=== PATIENT | female | born 1955 | race Caucasian/White ===

== ENCOUNTER 2021-05-16 11:15 | Outpatient (CLI) | payer OTHER ==
[~2021-05-16 11:15] MED LIST: OSEL75CA; ZOCOR40 MG
== END 2021-05-16 12:15 | disposition home or self-care (01) ==
LOC: SONOGRAMA 11:15
PROVIDERS: ATTEND Pathology Anatomic Pathology & Clinical Pathology
DX: E04.1 Nontoxic single thyroid nodule (principal)